=== PATIENT | male | born 2000 | race Caucasian/White ===

== ENCOUNTER 2022-12-12 16:58 | Emergency (ER) | payer SELFPAY ==
[2022-12-12] MEDS ORDERED: diphenhydrAMINE 50 MG Cap PO ONE (17:22)
== END 2022-12-12 17:59 | disposition home or self-care (01) ==
LOC: MW.ED 16:58
DX: B00.9 Herpesviral infection, unspecified (principal); Z86.16 Personal history of COVID-19
CPT/HCPCS: 99282; 99283; A9270-GY